=== PATIENT | female | born 2005 | race Caucasian/White ===

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

== ENCOUNTER 2025-01-20 09:39 | Observation (INO) | payer OTHER, SELFPAY ==
[2025-01-20] VITALS (18 sets, daily range): BP systolic 100–124; BP diastolic 57–70; PULSE 71–125; RESP 12–18; TEMP 36.4–36.9; O2SAT 94–100; BMI 19.3; BMI 18.8
[2025-01-20] MEDS: ONDANSETRON 4 MG/2 ML INJ IV (09:58)
[2025-01-20 10:17] LABS: Add Manual Diff / Slide Review NO; Basophils Absolute Auto 100 /uL (0-100); Basophils Percent Auto 0.5 % (0-2); Eosinophils Absolute Auto 0 /uL (0-450); Eosinophils Percent Auto 0.2 % (2-4); Hematocrit 40.5 % (36-46); Hemoglobin 14.3 g/dL (12.0-16.0); Lymphocytes Absolute Auto 1300 /uL (1100-4500); Lymphocytes Percent Auto 10.2 % (25-40); Mean Corpuscular HGB Conc 35.4 % (30-36); Mean Corpuscular Hemoglobin 32.2 PG (26-34); Monocytes Absolute Auto 1200 /uL (0-900); Monocytes Percent Auto 9.5 % (3-14); Neutrophils Absolute Auto 9900 /uL (1500-7000); Neutrophils Percent Auto 79.6 % (50-75); Platelet Count 214 X10^3/uL (150-400); Red Blood Cell Count 4.45 X10^6/uL (4.0-5.2); Red Cell Distribution Width 12.7 % (11.6-14.8); White Blood Cell Count 12.4 X10^3/uL (4.5-11.0)
[2025-01-20 10:26] LABS: Alanine Aminotransferase 24 IU/L (<35); Albumin 4.7 g/dL (3.5-5.0); Albumin Globulin Ratio 1.5 (1.0-2.8); Alkaline Phosphatase 66 U/L (38-126); Aspartate Aminotransferase 29 IU/L (14-36); BUN Creatinine Ratio 21.8 (6-22); Bilirubin Total 0.4 mg/dL (0.2-1.3); Blood Urea Nitrogen 17 mg/dL (7-17); Calcium 10.3 mg/dL (8.4-10.2); Carbon Dioxide 17 mmol/L (22-32); Chloride 110 mmol/L (98-107); Estimated Glomerular Filt Rate > 60 mL/min (>60); Globulin 3.2 g/dL (1.7-4.1); Glucose 101 mg/dL (70-99); HEMOLYSIS < 15 (0-50); Lipase 34 U/L (23-300); Sodium 140 mmol/L (137-145); Total Protein 7.9 g/dL (6.3-8.2)
--- NOTE | 2025-01-20 10:28 | ED_ITS ---
HPI - Abdominal Pain General Chief Complaint: Abdominal Pain Stated Complaint: N/V Abd pain Time Seen by Provider: 01/20/25 09:58 Mode of arrival: Ambulatory History of Present Illness HPI narrative: Patient here with boyfriend. LMP 1 week. Denies . Complaints 1 week of lower abdominal discomfort with nausea and vomiting. Patient has history of polycystic ovaries but she states this feels different. Has crampy sharp lower abdominal pain. No fever chills. No urinary complaints. Pain is worse with sexual intercourse as well as with eating. Related Data Home Medications Medication Instructions Recorded Confirmed levonorgestrel 21 mcg/24 hr (up to 05/22/24 05/22/24 8 years) 52 mg intrauterine device (Mirena) sertraline 50 mg tablet 100 mg PO QAM 05/22/24 05/22/24 spironolactone 100 mg tablet 100 mg PO BID 05/22/24 05/22/24 Allergies Allergy/AdvReac Type Severity Reaction Status Date / Time No Known Drug Allergies Allergy Verified 05/22/24 00:52 Review of Systems Review of Systems Narrative: GENERAL: Negative chills, fatigue, malaise, fever, sweats. HEENT: Negative sinus pain, ear pain, sore throat RESPIRATORY: Negative dyspnea, cough CARDIOVASCULAR: Negative chest pain, palpitations GASTROINTESTINAL: Positive vomiting, nausea, abdominal pain : Negative dysuria, frequency, hematuria MUSCULOSKELETAL: Negative muscle or bony pain SKIN: Negative rash, skin lesions NEUROLOGIC: Negative weakness, numbness ROS Unobtainable: All systems reviewed & are unremarkable except as noted in HPI and below Patient History Social History Smoking Status: Current every day smoker Smoking Status: Current every day smoker tobacco type: vaping alcohol intake frequency: a few times a month Exam Narrative Exam Narrative: GENERAL: in no distress, not toxic not dyspneic HEAD: Normocephalic. EYES: Pupils equal round ENT: Mucous membranes moist. NECK: Trachea midline. CARDIOVASCULAR: Regular rate and rhythm RESPIRATORY: Clear to auscultation. Breath sounds equal bilaterally. No wheezes, rales, or rhonchi. GASTROINTESTINAL: Abdomen soft, flat, reproducible McBurney point tenderness. No guarding no rebound. No pain out of portion exam. No peritoneal signs. Bowel sounds are present. EXTREMITIES: No gross deformities. BACK: No flank tenderness. NEURO: AOx4. Clear speech SKIN: Warm and dry PSYCH: Not anxious, is cooperative Initial Vital Signs Initial Vital Signs: Vital Signs Temperature 98.5 F 01/20/25 09:41 Pulse Rate 125 H 01/20/25 09:41 Respiratory Rate 16 01/20/25 09:41 Blood Pressure 113/63 01/20/25 09:41 Pulse Oximetry 94 01/20/25 09:41 Oxygen Delivery Method Room Air 01/20/25 09:41 Course Orders Ordered: ED Orders 01/20/25 09:57 Complete Blood Count AUTO DIFF Stat Comprehensive Metabolic Panel Stat Lipase Stat Test Serum,Qual Stat 01/20/25 10:39 CT abdomen pelvis w con Stat 01/20/25 11:19 US pelvic complete Stat Ondansetron HCl (Ondansetron 4 Mg/2 Ml Inj) 4 mg IV NOW PRN PRN Reason: Nausea And Vomiting Last Admin: 01/20/25 09:58 Dose: 4 mg Documented By: TANISHA Ondansetron HCl (Ondansetron 4 Mg Odt) 4 mg PO NOW PRN PRN Reason: Nausea And Vomiting Discontinued Medications Sodium Chloride (Normal Saline 0.9%) 1,000 mls @ 1,000 mls/hr IV BOLUS ONE Stop: 01/20/25 11:26 Last Infusion: 01/20/25 11:38 Dose: Infused Documented By: Admin: 01/20/25 10:33 Dose: 1,000 mls/hr Documented By: TANISHA Piperacillin Sod/Tazobactam (Sod 3.375 gm/ Sodium Chloride) 100 mls @ 200 mls/hr IV NOW ONE Stop: 01/20/25 13:18 Ondansetron HCl (Ondansetron 4 Mg/2 Ml Inj) 4 mg IV NOW ONE Stop: 01/20/25 10:28 Last Admin: 01/20/25 10:36 Dose: Not Given Documented By: TANISHA Vital Signs Vital signs: Vital Signs - 8 hr 01/20/25 09:41 01/20/25 10:29 01/20/25 10:39 Temperature 98.5 F Pulse Rate 125 H 101 H 93 H Respiratory Rate 16 17 Blood Pressure 113/63 104/60 Pulse Oximetry 94 97 98 Oxygen Delivery Method Room Air Room Air 01/20/25 10:52 01/20/25 10:52 01/20/25 11:00 Temperature Pulse Rate 105 H 93 H Respiratory Rate Blood Pressure 124/58 L Pulse Oximetry 99 100 Oxygen Delivery Method 01/20/25 11:00 01/20/25 11:30 01/20/25 11:30 Temperature Pulse Rate 103 H Respiratory Rate Blood Pressure 113/59 L 108/67 Pulse Oximetry 100 Oxygen Delivery Method MDM - Abdominal Pain Lab Data 01/20/25 09:57 01/20/25 09:57 Labs: Lab Results 01/20/25 Range/Units 09:57 WBC 12.4 H (4.5-11.0) X10^3/uL RBC 4.45 (4.0-5.2) X10^6/uL Hgb 14.3 (12.0-16.0) g/dL Hct 40.5 (36-46) % MCV 91.0 (80-100) fL MCH 32.2 (26-34) PG MCHC 35.4 (30-36) % RDW 12.7 (11.6-14.8) % Plt Count 214 (150-400) X10^3/uL Neut % (Auto) 79.6 H (50-75) % Lymph % (Auto) 10.2 L (25-40) % Josephine % (Auto) 9.5 (3-14) % Eos % (Auto) 0.2 L (2-4) % Baso % (Auto) 0.5 (0-2) % Neut # (Auto) 9900 H (5293-8690) /uL Lymph # (Auto) 1300 (4755-7113) /uL Josephine # (Auto) 1200 H (0-900) /uL Eos # (Auto) 0 (0-450) /uL Baso # (Auto) 100 (0-100) /uL Sodium 140 (137-145) mmol/L Potassium 4.0 (3.4-5.1) mmol/L Chloride 110 H (98-107) mmol/L Carbon Dioxide 17 L (22-32) mmol/L BUN 17 (7-17) mg/dL Creatinine 0.78 (0.52-1.04) mg/dL Estimated GFR > 60 (>60) mL/min BUN/Creatinine Ratio 21.8 (6-22) Glucose 101 H (70-99) mg/dL Calcium 10.3 H (8.4-10.2) mg/dL Total Bilirubin 0.4 (0.2-1.3) mg/dL AST 29 (14-36) IU/L ALT 24 (<35) IU/L Alkaline Phosphatase 66 (38-126) U/L Total Protein 7.9 (6.3-8.2) g/dL Albumin 4.7 (3.5-5.0) g/dL Globulin 3.2 (1.7-4.1) g/dL Albumin/Globulin Ratio 1.5 (1.0-2.8) Lipase 34 (23-300) U/L Serum , Qual Negative (Negative) Point of care testing: Point of Care Testing Test Results Negative Urine Dip Bedside Urine Glucose Negative Bedside Urine Bilirubin - Negative Bedside Urine Ketone - Negative Urine Specific Pierce 1.015 Bedside Urine Occult Blood - Negative Bedside Urine pH 7.0 Bedside Urine Protein - Negative Bedside Urine Urobilinogen - Negative Bedside Urine Nitrite - Negative Bedside Urine Leukocytes - Negative Esterase Imaging Data CT scan - abdomen/pelvis: Radiologist's Impression: [place] [address] CT Scan Report Signed Patient: Anabella Cooper MR#: [id number] : 2005 Acct:[id number] Age/Sex: 19 / F Date of Service: 01/20/25 Loc: ED Accession Number: [id number] Procedure: CT abdomen pelvis w con Ordering Provider: Dallas Gilbert MD PROCEDURE: CT ABDOMEN PELVIS W CON INDICATIONS: abdominal pain TECHNIQUE: After the administration of intravenous contrast, axial sections acquired from the lung bases to the pubic symphysis. Coronal and sagittal reformats were performed. For radiation dose reduction, the following was used: automated exposure control, adjustment of mA and/or kV according to patient size. COMPARISON: None. FINDINGS: Image quality: Diagnostic. Lower Chest: No significant findings. ABDOMEN: Liver: No solid mass. Gallbladder: No radiopaque gallstones or wall thickening. Biliary ducts: No biliary dilation. Pancreas: No ductal dilation. Spleen: Size is within normal limits. Adrenal Glands: No adrenal nodules. Kidneys and Ureters: No hydronephrosis. No solid mass. No complex renal cystic lesion which requires follow up. Stomach and Bowel: Normal colonic caliber, without significant wall thickening. Moderate amount of stool throughout the colon. Appendix not definitely visualized. No free fluid or inflammatory changes noted adjacent to the cecum. Peritoneum: No abnormal intraperitoneal fluid. No free air. Ventral Wall: No significant ventral hernia. Abdominal Nodes: No retroperitoneal or mesenteric adenopathy by size criteria. Vessels: Aorta and inferior vena cava are normal in size. PELVIS: Pelvic Organs: 5.2 centimeter right adnexal cyst. IUD centrally positioned within the uterus. Fluid-filled tubular structure noted adjacent to the right adnexal cyst Bladder: No bladder wall thickening, accounting for underdistention. Pelvic Nodes: No enlarged lymph nodes. Miscellaneous: No inguinal hernias are seen. Bones: No aggressive osseous abnormality. IMPRESSION: 5.2 centimeter right adnexal cyst. Recommend pelvic ultrasound for additional evaluation. Appendix not definitely visualized. 1.1 centimeter fluid-filled structure in the right lower quadrant adjacent to right adnexal cyst and the cecum which could represent an enlarged appendix or hydrosalpinx. Dictated by: Val Foster MD, PhD on 01/20/2025 at 11:05 Approved by: Val Foster MD, PhD on 01/20/2025 at 11:14 US - HYPOID GEAR GENERATOR: Radiologist's Impression: [place] [address] Ultrasound Report Signed Patient: Anabella Cooper MR#: [id number] : 2005 Acct:[id number] Age/Sex: 19 / F Date of Service: 01/20/25 Loc: ED Accession Number: [id number] Procedure: US pelvic complete Ordering Provider: Dallas Gilbert MD PROCEDURE: US PELVIC COMPLETE INDICATIONS: PAIN TECHNIQUE: Real-time scanning was performed of the pelvic organs, with image documentation. Additional endovaginal scanning was necessary due to incomplete visualization of the adnexal and endometrial structures by transabdominal scanning. Color and spectral Doppler evaluation of the ovaries in the setting of pelvic pain. COMPARISON: [facility], CT, CT ABDOMEN PELVIS W CON, 01/20/2025, 10:49. FINDINGS: Uterus: Uterus is anteverted and normal in size at 6.8 x 3.2 x 4.6 cm. The myometrium is homogeneous. The endometrium measures 7.0 mm combined thickness. Intrauterine device is in expected position. Ovaries: The right ovary measures 5.6 x 3.6 x 5.0 cm, with a calculated ovarian volume of 52.6 cc. The left ovary measures 1.6 x 2.5 x 1.9 cm, with a calculated ovarian volume of 4.0 cc. Simple right ovarian cyst measures 5.3 x 3.9 x 3.4 cm. The ovaries have a normal sonographic appearance. Less than 12 follicles can be seen in each ovary. Arterial and venous Doppler flow is demonstrated to each ovary. Other: No pathologic free abdominal or pelvic fluid. Appendix not visualized. IMPRESSION: 1. No sonographic signs of ovarian torsion, although intermittent torsion- detorsion cannot be excluded with imaging. 2. Simple right ovarian cyst measures up to 5.3 cm. Approved by: Gregory Ryan M.D. on 01/20/2025 at 11:31 [facility] Narrative Medical decision making narrative: Patient here with boyfriend. LMP 1 week. Denies . Complaints 1 week of lower abdominal discomfort with nausea and vomiting. Patient has history of polycystic ovaries but she states this feels different. Has crampy sharp lower abdominal pain. No fever chills. No urinary complaints. Pain is worse with sexual intercourse as well as with eating. After history and exam, CBC CMP urinalysis test Zofran normal saline [facility] Medical records reviewed: No recent visit for this complaint Differential considered: Includes but not limited to PCOS UTI colitis appendicitis cholelithiasis cholecystitis Lab Test results independently reviewed as above. Pertinent findings: WBC 12.4, negative , urinalysis negative nitrite negative leukocyte esterase Imaging studies independently reviewed: CT abdomen pelvis ovarian cysts seen, appendix not visualized however possible appendicitis, pelvic ultrasound no torsion Consultations: 1:[address] Chang, general surgery, he is getting ready to start a case, however he will look at the CT scan and then come over and evaluate patient for appendicitis. Re-evaluations: 1:[address] Chang has evaluated patient and will be taking patient to the OR for appendectomy. Discussion: Appropriate for admission. General surgeon has seen patient and evaluate patient and will need to take to the OR for appendicitis/appendectomy Diagnosis: Acute appendicitis Discharge Plan Departure Patient Disposition: Admitted to Surgery Clinical Impression: Acute appendicitis Qualifiers: Acute appendicitis type: unspecified acute appendicitis type Qualified Code(s): K35.80 - Unspecified acute appendicitis Admit Date/Time: 01/20/25 13:19 Admit Provider: Paramjit Chang
[2025-01-20] MEDS: SODIUM CHLORIDE 0.9% 1,000 ML 1000 ML IV (10:33)
[2025-01-20 10:37] LABS: Pregnancy Test Serum,Qual Negative (Negative)
--- NOTE | 2025-01-20 10:39 | DI.CT.S_ITS ---
PROCEDURE: CT ABDOMEN PELVIS W CON INDICATIONS: abdominal pain TECHNIQUE: After the administration of intravenous contrast, axial sections acquired from the lung bases to the pubic symphysis. Coronal and sagittal reformats were performed. For radiation dose reduction, the following was used: automated exposure control, adjustment of mA and/or kV according to patient size. COMPARISON: None. FINDINGS: Image quality: Diagnostic. Lower Chest: No significant findings. ABDOMEN: Liver: No solid mass. Gallbladder: No radiopaque gallstones or wall thickening. Biliary ducts: No biliary dilation. Pancreas: No ductal dilation. Spleen: Size is within normal limits. Adrenal Glands: No adrenal nodules. Kidneys and Ureters: No hydronephrosis. No solid mass. No complex renal cystic lesion which requires follow up. Stomach and Bowel: Normal colonic caliber, without significant wall thickening. Moderate amount of stool throughout the colon. Appendix not definitely visualized. No free fluid or inflammatory changes noted adjacent to the cecum. Peritoneum: No abnormal intraperitoneal fluid. No free air. Ventral Wall: No significant ventral hernia. Abdominal Nodes: No retroperitoneal or mesenteric adenopathy by size criteria. Vessels: Aorta and inferior vena cava are normal in size. PELVIS: Pelvic Organs: 5.2 centimeter right adnexal cyst. IUD centrally positioned within the uterus. Fluid-filled tubular structure noted adjacent to the right adnexal cyst Bladder: No bladder wall thickening, accounting for underdistention. Pelvic Nodes: No enlarged lymph nodes. Miscellaneous: No inguinal hernias are seen. Bones: No aggressive osseous abnormality. IMPRESSION: 5.2 centimeter right adnexal cyst. Recommend pelvic ultrasound for additional evaluation. Appendix not definitely visualized. 1.1 centimeter fluid-filled structure in the right lower quadrant adjacent to right adnexal cyst and the cecum which could represent an enlarged appendix or hydrosalpinx. Dictated by: Val Foster MD, PhD on 01/20/2025 at 11:05 Approved by: Val Foster MD, PhD on 01/20/2025 at 11:14
--- NOTE | 2025-01-20 11:19 | DI.US.S_ITS ---
PROCEDURE: US PELVIC COMPLETE INDICATIONS: PAIN TECHNIQUE: Real-time scanning was performed of the pelvic organs, with image documentation. Additional endovaginal scanning was necessary due to incomplete visualization of the adnexal and endometrial structures by transabdominal scanning. Color and spectral Doppler evaluation of the ovaries in the setting of pelvic pain. COMPARISON: [facility], CT, CT ABDOMEN PELVIS W CON, 01/20/2025, 10:49. FINDINGS: Uterus: Uterus is anteverted and normal in size at 6.8 x 3.2 x 4.6 cm. The myometrium is homogeneous. The endometrium measures 7.0 mm combined thickness. Intrauterine device is in expected position. Ovaries: The right ovary measures 5.6 x 3.6 x 5.0 cm, with a calculated ovarian volume of 52.6 cc. The left ovary measures 1.6 x 2.5 x 1.9 cm, with a calculated ovarian volume of 4.0 cc. Simple right ovarian cyst measures 5.3 x 3.9 x 3.4 cm. The ovaries have a normal sonographic appearance. Less than 12 follicles can be seen in each ovary. Arterial and venous Doppler flow is demonstrated to each ovary. Other: No pathologic free abdominal or pelvic fluid. Appendix not visualized. IMPRESSION: 1. No sonographic signs of ovarian torsion, although intermittent torsion-detorsion cannot be excluded with imaging. 2. Simple right ovarian cyst measures up to 5.3 cm. Approved by: Gregory Ryan M.D. on 01/20/2025 at 11:31
[2025-01-20] MEDS: PIPERACILLIN/TAZO 3.375 GM in SODIUM CHLORIDE 0.9% 100 ML IV (13:49)
--- NOTE | 2025-01-20 14:58 | SUR.OPER ---
Supine on padded OR bed, head on pillow, arms secured on padded arm boards at <90 degrees abduction, left arm tucked, legs uncrossed, safety belt at thigh, tape over blanket over lower legs.
[2025-01-20] MEDS: ACETAMINOPHEN 325 MG TABLET 975 MG PO (15:02)
[2025-01-20] MEDS: LACTATED RINGERS 1,000 ML 42 ML IV (15:02)
--- NOTE | 2025-01-20 15:03 | PM.HP.IH.1 ---
History of Present Illness History of Present Illness Date Patient Seen: 01/20/25 Time Patient Seen: 15:03 Chief complaint: N/V Abd pain Narrative: Anabella is a 19-year-old woman who presents with several days of right lower quadrant abdominal pain. In the ER she had an elevated white count. Her CT scan showed a dilated tubular structure in the right lower quadrant which could represent the appendix. [facility] Social History Smoking Status: Current every day smoker Meds Home Medications and Allergies Home Medications Medication Instructions Recorded Confirmed Type levonorgestrel 21 mcg/24 hr (up to 05/22/24 05/22/24 History 8 years) 52 mg intrauterine device (Mirena) sertraline 50 mg tablet 100 mg PO QAM 05/22/24 05/22/24 History spironolactone 100 mg tablet 100 mg PO BID 05/22/24 05/22/24 History Allergies Allergy/AdvReac Type Severity Reaction Status Date / Time No Known Drug Allergies Allergy Verified 05/22/24 00:52 Exam Vital Signs (past 8 hours): - 01/20/25 09:41 01/20/25 10:29 01/20/25 10:39 Temperature 98.5 F Pulse Rate 125 H 101 H 93 H Respiratory Rate 16 17 Blood Pressure 113/63 104/60 Pulse Oximetry 94 97 98 Oxygen Delivery Method Room Air Room Air 01/20/25 10:52 01/20/25 10:52 01/20/25 11:00 Temperature Pulse Rate 105 H 93 H Respiratory Rate Blood Pressure 124/58 L Pulse Oximetry 99 100 Oxygen Delivery Method 01/20/25 11:00 01/20/25 11:30 01/20/25 11:30 Temperature Pulse Rate 103 H Respiratory Rate Blood Pressure 113/59 L 108/67 Pulse Oximetry 100 Oxygen Delivery Method 01/20/25 12:00 01/20/25 12:00 01/20/25 13:54 Temperature Pulse Rate 110 H 104 H Respiratory Rate Blood Pressure 107/64 Pulse Oximetry 98 99 Oxygen Delivery Method 01/20/25 13:54 01/20/25 14:00 01/20/25 14:00 Temperature Pulse Rate 97 H Respiratory Rate Blood Pressure 106/68 106/67 Pulse Oximetry 99 Oxygen Delivery Method Oxygen Delivery Method Room Air Narrative Exam Narrative: Tender to palpation in the right lower quadrant without ricco peritonitis Objective Labs 01/20/25 09:57 01/20/25 09:57 Labs: Laboratory Results - last 24 hr 01/20/25 09:57 WBC 12.4 H RBC 4.45 Hgb 14.3 Hct 40.5 MCV 91.0 MCH 32.2 MCHC 35.4 RDW 12.7 Plt Count 214 Neut % (Auto) 79.6 H Lymph % (Auto) 10.2 L [place] % (Auto) 9.5 Eos % (Auto) 0.2 L Baso % (Auto) 0.5 Neut # (Auto) 9900 H Lymph # (Auto) 1300 [place] # (Auto) 1200 H Eos # (Auto) 0 Baso # (Auto) 100 Sodium 140 Potassium 4.0 Chloride 110 H Carbon Dioxide 17 L BUN 17 Creatinine 0.78 Estimated GFR > 60 BUN/Creatinine Ratio 21.8 Glucose 101 H Calcium 10.3 H Total Bilirubin 0.4 AST 29 ALT 24 Alkaline Phosphatase 66 Total Protein 7.9 Albumin 4.7 Globulin 3.2 Albumin/Globulin Ratio 1.5 Lipase 34 Serum , Qual Negative Assessment & Plan Assessment and plan (1) Acute appendicitis: Qualifiers: Acute appendicitis type: unspecified acute appendicitis type Qualified Code(s): K35.80 - Unspecified acute appendicitis Status: Acute Plan Suspicious for early appendicitis. I discussed the options of observation, laparoscopic appendectomy or antibiotic therapy. She would like to proceed with laparoscopic appendectomy. Time-Based Coding :: [TOTAL MINUTES] spent with patient and on the chart (including review of chart, obtaining history, exam, reviewing outside data, placing orders, documenting exam and treatment plan, and counseling patient) on [DATE]. PROFEE Inspector Plug Seam Document charge(s): No
[2025-01-20] MEDS: BUPIVACAINE 0.5% W/ EPI (PF) 30 ML VIAL INJ (15:52)
--- NOTE | 2025-01-20 16:12 | P.OP_ITS ---
Operative Date/Time/Diagnoses Date of procedure: 01/20/25 Time of procedure: 16:12 Pre-op diagnosis: Acute appendicitis Post-op diagnosis: same Procedure & Clinicians Procedure: Laparoscopic appendectomy Same procedure as scheduled: Yes Surgeon: Paramjit Chang Sandal Parts Assembler: Hang Spencer Anesthesia Type: General Operative Notes Findings: Mildly dilated appendix, enlarged, congested right ovary Estimated Blood Loss (mL): 10 Procedure in detail: The patient was on IV antibiotics. The patient was brought to the operating room, placed on the table in the supine position and general endotracheal anesthesia was induced. A time-out was performed. The abdomen was prepped and draped in the usual fashion. After injection of local anesthetic a 1 cm infraumbilical incision was created with a 15 blade scalpel. The umbilical stalk was grasped with a Harriett clamp to elevate the abdominal wall. The infraumbilical midline fascia was cleared over 1 cm and the fascia was scored with cautery. The peritoneum was pierced with a Peon clamp. The Catarina port was placed and the abdomen was insufflated to 15 mmHg. The camera was inserted and there was no evidence of any injury from the entry. Next, 5 mm ports were placed in the suprapubic and left lower quadrant positions under direct vision. The patient was placed in Trendelenburg with the right-side elevated. The terminal ileum was swept away from the cecum and the appendix was visualized. The appendix was inflamed and distended but not perforated and there was no evidence of gangrene. The mesoappendix was divided with the Power-seal. Two PDS Endoloops were placed at the base and a 3rd endoloop was placed about a centimeter distally and the appendix was divided sharply. The specimen was placed in a Endo-Catch bag. The right ovary was notably enlarged and congested. There was no evidence of torsion. A photograph was taken. The table was flattened and the terminal ileum and omentum were allowed to slide in over the appendiceal stump. Finally, the 5 mm ports were removed under direct vision. The pneumoperitoneum was released and the Catarina port was removed followed by the Endo-Catch bag. Additional local was injected into the fascia and the infraumbilical incision was closed with 2 interrupted 2-0 Vicryl sutures. The skin incisions were closed with 4 Monocryl. Steri-Strips were applied followed by Band-Aids. EBL: 5 mL Specimen: Appendix Hang ROBERTS provided assistance with exposure, retraction and closure of incisions. Complications: none Post-operative Condition: stable Disposition: PACU
[2025-01-20] MEDS: ACETAMINOPHEN 325 MG TABLET 650 MG PO (18:01)
[2025-01-20] MEDS: IBUPROFEN 600 MG TABLET PO (18:02)
[2025-01-21] MEDS: HYDROMORPHONE 0.5 MG INJ IV (00:45)
[2025-01-21] MEDS: ONDANSETRON 4 MG/2 ML INJ IV (01:43)
[2025-01-21] MEDS: HYDROCODONE/ACET 5/325 TABLET 1 TAB PO (08:03)
--- NOTE | 2025-01-21 10:56 | CM.DANOTE ---
Initial DCP Assessment Visit Note Reviewed EMR and team rounds for pt's status updates. Pt lives independently in a RV with her boyfriend. Her boyfriend is bedside and will be transporting her home. No CM d/c assistance/resource needs were identified before she was medically cleared for hospital discharge. Payor: [facility] Attending: Dr. Chang Pt is a 19 year-old F post-op day 1 from a lap appendectomy. Pt had presented yesterday afternoon to the ED with c/o lower abdominal pian/discomfort for the last week. CT imaging suggested acute appendicitis. Surgery was consulted, and the plan was made to take pt to surgery late yesterday afternoon. She had no postoperative complications, and was cleared for d/c prior to his CLAIM AUDITOR being able to meet with her. Discharge Planning/Care Management CM Discharge Assessment Start: 01/20/25 13:25 Freq: Status: Active Protocol: Document 01/21/25 10:54 DPL (Rec: 01/21/25 10:56 DPL [id number]) Discharge Planning Assessment Assigned Pattern Stamper RUFINO Stapleton Advance Directives? No History Provided By Medical Record Has Patient been admitted in last 30 No days? Prior Living Arrangements RV Household Members friend(s) Type of transporation used prior to Relies on Others admit Independent with ADL's Yes Is patient alert and oriented? Yes Caregiver for Another No Comment N/A Barriers to Discharge No Discharge Plan Home Referrals Initiated None needed Review Status In Process Please Provide Date Initial DC 01/21/25 Assessment Was Performed
--- NOTE | 2025-01-21 10:57 | PC.NURSE ---
Day shift: Discharge instructions gone over with patient and patient's SO. All questions answered, patient stated understanding. PIV removed. All belongings with patient. PCT Ryan escorted patient via wheelchair to exit.
== END 2025-01-21 10:58 | disposition home or self-care (01) ==
LOC: ED 10:27 → AC 13:20
PROVIDERS: Admitting Provider Surgery; Emergency Provider Emergency Medicine; Referring Provider Emergency Medicine; Visit Provider Surgery
PROC: 0DTJ4ZZ Resection of Appendix, Percutaneous Endoscopic Approach (ICD-10-PCS; CPT 44970; principal; 2025-01-20 15:30)
DX: K35.80 Unspecified acute appendicitis (principal); E28.2 Polycystic ovarian syndrome; F17.210 Nicotine dependence, cigarettes, uncomplicated
CPT/HCPCS: 44970; 36415; 74177; 76830; 76856; 80053; 81003; 81025; 83690; 84703; 85025; 93975; 96374; 96375; 96376; 99221; 99284; G0378; J0330; J1100; J1171; J1885; J2405; J2543; J2704; J3010; J3490; Q9967